=== PATIENT | female | born 1975 | race Caucasian/White ===

== ENCOUNTER 2019-06-20 01:13 | Emergency (ER) | payer OTHER, SELFPAY ==
--- NOTE | ~2019-06-20 | XR_ITS ---
EXAMINATION: XR chest 2V DATE: 06/20/2019 04:11 INDICATION: Cough TECHNIQUE: PA and lateral views of the chest are obtained. COMPARISON: None available FINDINGS: The lungs are free of acute opacities. There is no pleural effusion or pneumothorax. The ca rdiomediastinal silhouette is normal. There is mild thoracic spondylosis. IMPRESSION: 1. No acute cardiopulmonary abnormality. Reviewed, dictated and finalized at location A. Y OPERATOR
--- NOTE | ~2019-06-20 | CT_ITS ---
EXAMINATION: CT brain wo con INDICATION: Altered mental status and generalized weakness COMPARISON: None TECHNIQUE: Standard unenhanced head CT. The dose-length product (DLP) was 605.33 mGy-cm. The mA was a djusted according to patient size. Iterative reconstruction technique was employed. FINDINGS: There is no intracranial hemorrhage, acute infarction, or abnormal mass lesion. The ventric les are normal. There is no abnormal mass effect or midline shift. The anders-white matter differentiat ion is normal. The basal cisterns are patent. The orbits are normal. There is mild mucosal thickening of the paranasal sinuses. IMPRESSION: 1. No acute intracranial abnormality. Reviewed, dictated and finalized at location A. ACTION MACHINE OPERATOR
[2019-06-20 01:16] VITALS: BP 128/62; PULSE 93; RESP 22; TEMP 37.8; O2SAT 100
--- NOTE | 2019-06-20 03:11 | ECG_ITS ---
Measurements Intervals [place] Rate: 96 P: 15 MT: 169 QRS: 1 QRSD: 83 T: 24 QT: 330 QTc: 419 Interpretive Statements SINUS RHYTHM LOW QRS VOLTAGE IN PRECORDIAL LEADS CANNOT RULE OUT SEPTAL INFARCT, AGE INDETERMINATE ABNORMAL ECG Electronically Signed On 06-20-2019 15:50:11 BANQUET MANAGER by Jorgito Damian D.O.
[2019-06-20 03:30] VITALS: PULSE 98; RESP 18
[2019-06-20] MEDS: IPRATROPIUM BR 0.02% INH SOLN 0.5 MG/2.5 ML VIAL INHALATION (03:30)
[2019-06-20] MEDS: ALBUTEROL SULFATE NEB 2.5 MG/0.5 ML INH 5 MG INHALATION (03:30)
[2019-06-20 03:39] VITALS: PULSE 94; RESP 18
[2019-06-20 04:01] LABS: Basophils Absolute Auto 0.1 K/mm3 (0.0-0.1); Basophils Percent Auto 0.5 % (0.2-1.2); Eosinophils Percent Auto 0.1 % (0-4.4); Hematocrit 38.8 % (37.0-47.0); Hemoglobin 12.5 g/dL (12.0-15.0); Immature Granulocyte Absolute 0.05 K/mm3 (0.00-0.031); Immature Granulocyte Percent A 0.5 % (0-0.5); Lymphocytes Absolute Auto 0.77 K/mm3 (0.9-3.2); Lymphocytes Percent Auto 7.2 % (18.3-44.2); Mean Corpuscular HGB Conc 32.2 g/dl (32-36); Mean Corpuscular Hemoglobin 30.4 pg (26-34); Mean Corpuscular Volume 94.4 fl (80-100); Mean Platelet Volume 9.3 fl (7.4-10.4); Monocytes Percent Auto 9.6 % (2.6-8.5); Neutrophils Absolute Auto 8.8 K/mm3 (1.3-6.7); Neutrophils Percent Auto 82.1 % (45.5-73.1); Platelet Count Result 225 k/mm3 (150-375); Red Blood Count 4.11 M/mm3 (4.2-5.4); Red Cell Distribution Width 12.4 % (11.5-14.5); White Blood Count 10.7 K/mm3 (4.5-10.0)
[2019-06-20 04:23] LABS: Alanine Aminotransferase 62 U/L (4-35); Albumin Level 3.6 g/dL (3.5-5.1); Alkaline Phosphatase 63 U/L (38-126); Aspartate Amino Transferase 57 U/L (14-36); Bilirubin,Total 0.1 mg/dL (0.2-1.3); Blood Urea Nitrogen 6 mg/dL (7-17); Calcium 8.3 mg/dL (8.4-10.2); Carbon Dioxide 19 mmol/L (22-30); Chloride 104 mmol/L (98-107); Estimated CRCL calculation 99 ml/min; Estimated Glomerular Filt Rate > 60; Glucose 112 mg/dL (65-105); Potassium 4.1 mmol/L (3.4-5.0); Sodium 132 mmol/L (137-145)
[2019-06-20 04:24] LABS: Lactic Acid Reflex 0.8 mmol/L (0.7-2.1)
[2019-06-20 05:19] LABS: Add Urine Microscopic? YES; Appearance Urine Clear (Clear); Bilirubin Urine Negative (Negative); Blood Urine 2+ (Negative); Color Urine Straw (Yellow); Glucose Urine UA Negative (Negative); Ketones Urine Negative (Negative); Leukocyte Esterase Ur Negative LEU/UL (Negative); Mucus Urine Few /lpf; Nitrate Urine Negative (Negative); Protein Urine Negative (Negative); RBC Urine 0-2 /hpf (0-2); Specific Grav Ur 1.011 (1.001-1.035); Squamous Epithelial Cell Urine Rare /hpf (Few); Urobilinogen Urine Negative mg/dL (<2.0); WBC Urine 0-3 /hpf
--- NOTE | 2019-06-20 05:21 | ED.URI ---
HPI - URI/Sore Throat General Chief Complaint: Upper Respiratory Infection Stated Complaint: INFLUENZA A Time Seen by Provider: 06/20/19 03:10 Source: RN notes reviewed History of Present Illness HPI Narrative: Patient presents to emergency department from home for flulike symptoms. Patient states that yesterday she was diagnosed with influenza A at the the urgent care. She states that for the past 3 days she has been having body aches fevers and a cough is been nonproductive. Patient states that she has not been feeling better and per patient and family this evening she was having hallucinations. 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 This time the patient is awake and alert x3 she denies any current hallucinations. Patient states that she has had few episodes of posttussive emesis but denies any other nausea vomiting Related Data Allergies Allergy/AdvReac Type Severity Reaction Status Date / Time Penicillins Allergy Intermediate Swelling Verified 06/20/19 05:52 Review of Systems Review of Systems: Narrative: Gen.: See HPI Eyes: Denies eye pain or visual change ENT: Reports congestion Respiratory: Reports shortness of breath CV: Denies chest pain or palpitations GI: Denies abdominal pain nausea, emesis or diarrhea denies burning, urgency, frequency or hematuria Musculoskeletal: Denies back pain or muscle pain Neuro: Denies numbness, tingling, weakness or focal weakness Skin: Denies rash Except as documented, all other systems reviewed and negative [facility] Past Medical History Medical History Bipolar 1 disorder Surgical History Surgical History (Updated 06/20/19 @ 05:53 by Dave Theodore DO) History of cholecystectomy Social History Social History (Updated 06/20/19 @ 05:53 by Dave Theodore DO) Smoking status: Current every day smoker Gender identity (if verbalized by the patient): Female Exam Narrative: Exam Narrative: APPEARANCE: No acute distress, nontoxic, resting in bed EYES: EOMI HEENT: Normocephalic, atraumatic, TMs clear bilaterally, bilateral turbinates boggy, mild erythema no exudate posterior pharynx RESPIRATORY: No respiratory distress Clear to auscultation bilaterally with no rhonchi wheezing or rales. CARDIOVASCULAR: Regular rate and rhythm without murmurs rubs or gallops. ABDOMINAL: Soft, nontender, nondistended, no rebound or guarding MUSCULOSKELETAl: Moves all extremities. No clubbing, cyanosis or edema. NEURO: Awake and alert x 3Following commands, speech normal, no focal deficits SKIN:: Warm, dry. No rashes lesions or abrasions PSYCHIATRIC: Normal affect/mood, Course Vital Signs Vital signs: Vital Signs Temperature 100.0 F H 06/20/19 01:16 Pulse Rate 93 06/20/19 01:16 Respiratory Rate 22 H 06/20/19 01:16 Blood Pressure 128/62 06/20/19 01:16 Pulse Oximetry 100 06/20/19 01:16 Temperature 100.0 F H 06/20/19 01:16 Pulse Rate 94 06/20/19 03:39 Respiratory Rate 18 06/20/19 03:39 Blood Pressure 128/62 06/20/19 01:16 Pulse Oximetry 100 06/20/19 01:16 MDM - URI/Sore Throat Lab Data Result diagrams: 06/20/19 03:54 06/20/19 03:54 Labs: Lab Results 06/20/19 06/20/19 06/20/19 Range/Units 03:54 03:54 03:54 WBC 10.7 H (4.5-10.0) K/mm3 RBC 4.11 L (4.2-5.4) M/mm3 Hgb 12.5 (12.0-15.0) g/dL Hct 38.8 (37.0-47.0) % MCV 94.4 (80-100) fl MCH 30.4 (26-34) pg MCHC 32.2 (32-36) g/dl RDW 12.4 (11.5-14.5) % Plt Count 225 (150-375) k/mm3 MPV 9.3 (7.4-10.4) fl Immature Gran % (Auto) 0.5 (0-0.5) % Neut % (Auto) 82.1 H (45.5-73.1) % Lymph % (Auto) 7.2 L (18.3-44.2) % [place] % (Auto) 9.6 H (2.6-8.5) % Eos % (Auto) 0.1 (0-4.4) % Baso % (Auto) 0.5 (0.2-1.2) % Lymph # (Auto) 0.77 L (0.9-3.2) K/mm3 [place] # (Auto) 1.0 H (0.1-0.6) K/mm3 Eos #
[2019-06-20 05:46] VITALS: BP 112/73; PULSE 94; RESP 20; TEMP 37.3; O2SAT 96; O2SAT 97
[2019-06-20] MEDS: SODIUM CHLORIDE 0.9% IV 1,000 ML 999 ML IV CONT (05:53)
[2019-06-20] MEDS: KETOROLAC 30 MG/ML VIAL (*BKC) IV PUSH (05:53)
[2019-06-20 06:06] VITALS: BP 120/75; PULSE 92; RESP 20; TEMP 37.3; O2SAT 98
[2019-06-20 07:27] VITALS: BP 105/67; PULSE 95; RESP 20; TEMP 37.3; O2SAT 95
== END 2019-06-20 07:42 | disposition home or self-care (01) ==
PROVIDERS: Emergency Provider Emergency Medicine; PCP Internal Medicine Infectious Disease
DX: J10.1 Influenza due to other identified influenza virus with other respiratory manifestations (principal); F17.200 Nicotine dependence, unspecified, uncomplicated
CPT/HCPCS: 36415; 70450; 71046; 80053; 81001; 83605; 85025; 87040; 93005; 94640; 96361; 96374; 99284; A9270; J1885; J7030

== ENCOUNTER 2021-09-21 01:52 | Emergency (ER) | payer OTHER, SELFPAY ==
--- NOTE | 2021-09-21 01:56 | ED.DENTAL ---
HPI - Dental/Oral General Chief complaint: Dental/Oral Stated complaint: dental pain Time Seen by Provider: 09/21/21 01:56 Source: patient Mode of arrival: ambulatory Limitations: no limitations History of Present Illness HPI Narrative: The patient is a 46-year-old female presenting to the emergency department for evaluation of right upper molar dental pain. Patient reports severe right upper molar pain, patient states that she recently had tooth pulled on September 12. Patient states that she felt blood coming from the right upper molar, and then severe pain. She denies any purulent discharge. She denies any facial swelling, redness, fever, chills. Denies any difficulty breathing, shortness of breath. Patient denies neck swelling. Patient reports pain is aching in nature, denies any difficulty opening her mouth. Patient states that she has been on antibiotics, currently is taking Medrol Dosepak as prescribed by her dentist. Patient has dental follow-up this morning but came to the ER due to the pain. Per pt has been on two rounds of azithromycin, she is penicillin allergic. MD Complaint: tooth pain Location: Tooth # (2) Related Data Allergies Allergy/AdvReac Type Severity Reaction Status Date / Time Penicillins Allergy Intermediate Swelling Verified 09/21/21 02:00 Review of Systems Review of Systems: CONSTITUTIONAL: Denies fever CARDIOVASCULAR: Denies chest pain HEENT: Right upper molar pain RESPIRATORY: Denies cough or dyspnea. GASTROINTESTINAL: Denies abdominal pain SKIN: Denies rash MUSCULOSKELETAL: Denies back pain NEUROLOGIC: Denies headache PMFSH Past Medical History Medical History Bipolar 1 disorder Vaginal tumor Surgical History Surgical History H/O: hysterectomy (~10/20/19) History of biopsy vulvar History of cholecystectomy History of colonoscopy IBS History of endometrial ablation (~06/11/18) History of hysteroscopy Hysteroscopy, surgical, with biopsy of endometrium and/or polypectomy History of tubal ligation (~12/01/14) TL and resection of peritoneal mass (adhesions/calcification) Social History Social History Smoking status: Current every day smoker Gender identity (if verbalized by the patient): Female Exam Narrative: GENERAL: Awake, alert, conversant HEAD: Normocephalic, atraumatic. EYES: PERRLA and EOMI. ENT: Nares clear, no rhinorrhea or epistaxis. Mucous membranes moist. Uvula is midline. No trismus. Pt without significant facial edema, erythema. Pt with tooth extracted at molar 2 with large exposed tooth cavity, roots exposed. No purulent discharge. No gingival edema. Numerous crowns present on other teeth. NECK: Supple. No cervical lymphadenopathy. CHEST: No respiratory distress, breathing even and non labored HEART: Regular rate, sinus rhythm ABDOMEN:Non distended, non tender EXTREMITIES: Normal range of motion. No edema. SKIN: Warm, dry, no rash. NEURO:No focal deficits. Alert and oriented x3 Course Vital Signs Vital signs: Vital Signs Temperature 35.5 C L 09/21/21 01:57 Pulse Rate 88 09/21/21 01:57 Respiratory Rate 16 09/21/21 01:57 Blood Pressure 153/97 H 09/21/21 01:57 Pulse Oximetry 97 09/21/21 01:57 Temperature 36.7 C 09/21/21 02:00 Pulse Rate 97 09/21/21 02:00 Respiratory Rate 20 09/21/21 02:00 Blood Pressure 146/94 H 09/21/21 02:00 Pulse Oximetry 98 09/21/21 02:00 MDM - Dental/Oral MDM Narrative Medical decision making narrative: Patient's pain is consistent with dry socket from tooth extraction. Pt without signs of infection at this point. At the time of assessment there are no signs of systemic illness, no focal signs of space-occupying abscess or lesions, no signs of Dilshad angina or other concerning retropharyngeal infection. The patient is controll
[2021-09-21 01:57] VITALS: BP 153/97; PULSE 88; RESP 16; TEMP 35.5; O2SAT 97
[2021-09-21 02:00] VITALS: BP 146/94; PULSE 97; RESP 20; TEMP 36.7; O2SAT 98
[2021-09-21] MEDS: oxyCODONE/ACETAMINOPHEN (*CRX) 5-325 MG TABLET 2 TABLET PO (02:35)
[2021-09-21] MEDS: KETOROLAC (*BKC) 60 MG/2 ML VIAL 30 MG IM (02:37)
== END 2021-09-21 02:40 | disposition home or self-care (01) ==
PROVIDERS: Emergency Provider Emergency Medicine; PCP Internal Medicine Infectious Disease
DX: M27.3 Alveolitis of jaws (principal); F17.200 Nicotine dependence, unspecified, uncomplicated
CPT/HCPCS: 96372; 99283; A9270; J1885

== ENCOUNTER 2021-10-06 22:14 | Emergency (ER) | payer OTHER, SELFPAY ==
--- NOTE | ~2021-10-06 | CT_ITS ---
EXAMINATION: CT facial bones w con DATE: 10/06/2021 23:45 INDICATION: Right-sided facial pain TECHNIQUE: Computed tomography (CT) of the facial bones and maxillofacial region was performed with 7 5 cc of Omnipaque 300 intravenous contrast. The dose-length product (DLP) was 1285.49 mGy-cm. Automat ed exposure control and iterative reconstruction technique were employed. COMPARISON: None. FINDINGS: There is mild mucosal thickening of the maxillary sinuses, right sphenoid sinus, and ethmoi yun air cells. No facial fracture is identified. There are multiple tooth extractions of the maxilla. There is a penetration through the maxilla into the inferior maxillary sinus on the right, likely re lated to dental extraction. There appears to be a tiny defect of the inferior wall of the left maxill jay sinus. The site of prior dental extraction (image 109). No abnormal enhancement is present. There is no facial abscess. There is mild cervical spondylosis. IMPRESSION: 1. Small defects in the maxilla penetrating into the maxillary sinuses, likely related to dental extr actions. No abscess identified. Reviewed, dictated and finalized at location A. IMPRESSION: 1. Small defects in the maxilla penetrating into the maxillary sinuses, likely related to dental extractions. No abscess identified.
[2021-10-06 22:19] VITALS: BP 142/92; PULSE 90; RESP 18; TEMP 36.6; O2SAT 99
[2021-10-06 22:31] VITALS: BP 156/96; O2SAT 98
[2021-10-06] MEDS: HYDROcodone/acetaminophen (*CRX) 5-325 MG TABLET 1 TAB PO (22:45)
[2021-10-06 22:57] LABS: Basophils Absolute Auto 0.1 K/mm3 (0.0-0.1); Basophils Percent Auto 0.6 % (0.2-1.2); Eosinophils Absolute Auto 0.4 K/mm3 (0-0.3); Eosinophils Percent Auto 4.3 % (0-4.4); Hematocrit 38.9 % (37.0-47.0); Hemoglobin 12.8 g/dL (12.0-15.0); Immature Granulocyte Absolute 0.03 K/mm3 (0.00-0.031); Immature Granulocyte Percent A 0.3 % (0-0.5); Lymphocytes Absolute Auto 3.85 K/mm3 (0.9-3.2); Lymphocytes Percent Auto 38.9 % (18.3-44.2); Mean Corpuscular HGB Conc 32.9 g/dl (32-36); Mean Corpuscular Hemoglobin 30.5 pg (26-34); Mean Corpuscular Volume 92.8 fl (80-100); Mean Platelet Volume 8.4 fl (7.4-10.4); Monocytes Absolute Auto 0.7 K/mm3 (0.1-0.6); Monocytes Percent Auto 7.1 % (2.6-8.5); Neutrophils Absolute Auto 4.8 K/mm3 (1.3-6.7); Neutrophils Percent Auto 48.8 % (45.5-73.1); Platelet Count Result 376 k/mm3 (150-375); Red Blood Count 4.19 M/mm3 (4.2-5.4); Red Cell Distribution Width 12.5 % (11.5-14.5); White Blood Count 9.9 K/mm3 (4.5-10.0)
--- NOTE | 2021-10-06 22:57 | ED.DENTAL ---
HPI - Dental/Oral General Chief complaint: Dental/Oral Stated complaint: dental pain/swelling Time Seen by Provider: 10/06/21 22:30 Source: RN notes reviewed History of Present Illness HPI Narrative: Patient presents emergency room from home for facial pain. Patient states that on September 12, 2021 she had several teeth pulled in the bilateral molar region she states that since that time she has had increased pain going up into her sinuses she has been following with Dr. Gramajo and it was felt that her sinus of been ruptured she states she has been scheduled for an outpatient CT but has not been preauthorized by insurance yet. She states she is currently on clindamycin and states the pain became more severe this evening patient that she not taking thing for the pain at home. The pain is located bilateral frontal sinuses she also states that she notices drainage out of the previous location of her teeth she denies any fevers or chills sore throat or any other symptoms Related Data Home Medications Medication Instructions Recorded Confirmed clonazepam 1 mg tablet 1 mg PO DAILY 09/29/21 10/06/21 lisdexamfetamine 10 mg capsule 10 mg PO DAILY 09/29/21 10/06/21 lisdexamfetamine 20 mg capsule 20 mg PO QAM 09/29/21 10/06/21 lithium aspartate 5 mg capsule 5 mg PO DAILY 09/29/21 10/06/21 losartan 25 mg tablet 25 mg PO DAILY 09/29/21 10/06/21 pilocarpine HCl 5 mg tablet 5 mg PO QID 09/29/21 10/06/21 venlafaxine 37.5 mg 37.5 mg PO DAILY 09/29/21 10/06/21 capsule,extended release 24 hr Allergies Allergy/AdvReac Type Severity Reaction Status Date / Time Penicillins Allergy Intermediate Swelling Verified 10/06/21 22:24 Review of Systems Review of Systems: Gen.: Denies fevers or chills Eyes: Denies eye pain or visual change ENT: See HPI Respiratory: Denies shortness of breath or cough CV: Denies chest pain or palpitations GI: Denies abdominal pain nausea, emesis Musculoskeletal: Denies back pain or muscle pain Neuro: Denies numbness, tingling, weakness or focal weakness Skin: Denies rash Except as documented, all other systems reviewed and negative PMFSH Past Medical History Medical History Bipolar 1 disorder Vaginal tumor Surgical History Surgical History H/O: hysterectomy (~10/20/19) History of biopsy vulvar History of cholecystectomy History of colonoscopy IBS History of endometrial ablation (~06/11/18) History of hysteroscopy Hysteroscopy, surgical, with biopsy of endometrium and/or polypectomy History of tubal ligation (~12/01/14) TL and resection of peritoneal mass (adhesions/calcification) Family History Family History Mother Hypertension Depression Thyroid disorder Other Depression Thyroid disorder Father Heart disease Social History Social History Smoking status: Current every day smoker Gender identity (if verbalized by the patient): Female Exam Narrative: APPEARANCE: No acute distress, nontoxic, resting in bed EYES: EOMI HEENT: Normocephalic, atraumatic, TMs clear bilaterally nares patent tender palpation of bilateral maxillary sinuses, or mucosa moist erythema exudate posterior pharynx healing region of the bilateral upper gums in the region of the molar from previous tooth extraction no active drainage no surrounding erythema no swelling of the face RESPIRATORY: No respiratory distress Clear to auscultation bilaterally with no rhonchi wheezing or rales. CARDIOVASCULAR: Regular rate and rhythm without murmurs rubs or gallops. MUSCULOSKELETAl: Moves all extremities. NEURO: Awake and alert. Following commands, speech normal, no focal deficits SKIN:: Warm, dry. No rashes lesions or abrasions PSYCHIATRIC: Normal affect/mood, Course Course Emergency Course: : Discuss
[2021-10-06 23:11] LABS: Alanine Aminotransferase 72 U/L (6-35); Albumin Level 3.4 g/dL (3.5-5.1); Alkaline Phosphatase 85 U/L (38-126); Anion Gap 7 mmol/L (8-16); Aspartate Amino Transferase 47 U/L (14-36); Bilirubin,Total 0.2 mg/dL (0.2-1.3); Blood Urea Nitrogen 9 mg/dL (7-17); Calcium 8.4 mg/dL (8.4-10.2); Carbon Dioxide 23 mmol/L (22-30); Chloride 111 mmol/L (98-107); Estimated CRCL calculation 95 ml/min; Estimated Glomerular Filt Rate > 60; Glucose 124 mg/dL (65-110); Potassium 3.9 mmol/L (3.4-5.0); Sodium 141 mmol/L (137-145)
[2021-10-07] MEDS: KETOROLAC 30 MG/ML VIAL (*BKC) IV PUSH (00:27)
[2021-10-07 01:00] VITALS: BP 128/92; PULSE 69; RESP 16; O2SAT 98
== END 2021-10-07 01:00 | disposition home or self-care (01) ==
PROVIDERS: Emergency Provider Emergency Medicine; PCP Nurse Practitioner
DX: G89.18 Other acute postprocedural pain (principal); K08.89 Other specified disorders of teeth and supporting structures; F31.9 Bipolar disorder, unspecified; F17.200 Nicotine dependence, unspecified, uncomplicated
CPT/HCPCS: 36415; 70487; 80053; 85025; 96374; 99284; A9270; J1885; Q9967

== ENCOUNTER 2021-10-10 23:06 | Emergency (ER) | payer OTHER, SELFPAY ==
[2021-10-10 23:09] VITALS: BP 155/90; PULSE 105; RESP 18; TEMP 36.7; O2SAT 100
--- NOTE | 2021-10-11 00:20 | ED.DENTAL ---
HPI - Dental/Oral General Chief complaint: Dental/Oral Stated complaint: tooth pain Time Seen by Provider: 10/10/21 23:30 History of Present Illness HPI Narrative: Patient is a 46-year-old female with a history of recurrent sinusitis, recent dental extraction, who presents for evaluation of right-sided facial pain for the past month. Patient states her pain began after a dental extraction of a right upper molar. She is experienced intermittent pain, swelling, and also a sensation that she describes like a loose upper jaw. Patient has been evaluated in the ED twice for this issue. CT of the facial bones revealed no traumatic malalignment but did show likely post-surgical changes to her maxilla/dentition. Her pain has been better after [place]. She has also been evaluated by Dr. Gramajo, ENT, who is reportedly aware of the CT and is planning for surgery on her sinuses in the future. Denies trismus, drooling, sore throat, difficulty breathing. Related Data Home Medications Medication Instructions Recorded Confirmed clonazepam 1 mg tablet 1 mg PO DAILY 09/29/21 10/06/21 lisdexamfetamine 10 mg capsule 10 mg PO DAILY 09/29/21 10/06/21 lisdexamfetamine 20 mg capsule 20 mg PO QAM 09/29/21 10/06/21 lithium aspartate 5 mg capsule 5 mg PO DAILY 09/29/21 10/06/21 losartan 25 mg tablet 25 mg PO DAILY 09/29/21 10/06/21 pilocarpine HCl 5 mg tablet 5 mg PO QID 09/29/21 10/06/21 venlafaxine 37.5 mg 37.5 mg PO DAILY 09/29/21 10/06/21 capsule,extended release 24 hr Allergies Allergy/AdvReac Type Severity Reaction Status Date / Time Penicillins Allergy Intermediate Swelling Verified 10/11/21 00:00 Review of Systems Review of Systems: Gen: Denies fevers or chills Eyes: Denies eye pain or visual change ENT: Reports right-sided dental pain. Respiratory: Denies shortness of breath or cough CV: Denies chest pain or palpitations GI: Denies abdominal pain nausea, emesis or diarrhea denies burning, urgency, frequency or hematuria Musculoskeletal: Denies back pain or muscle pain Neuro: Denies numbness, tingling, weakness or focal weakness Skin: Denies rash Except as documented, all other systems reviewed and negative All systems reviewed & are unremarkable except as noted in HPI and below PMFSH Past Medical History Medical History Bipolar 1 disorder Vaginal tumor Surgical History Surgical History H/O: hysterectomy (~10/20/19) History of biopsy vulvar History of cholecystectomy History of colonoscopy IBS History of endometrial ablation (~06/11/18) History of hysteroscopy Hysteroscopy, surgical, with biopsy of endometrium and/or polypectomy History of tubal ligation (~12/01/14) TL and resection of peritoneal mass (adhesions/calcification) Family History Family History (Reviewed 09/29/21 @ 11:15 by Snehal Cali [facility]) Mother Hypertension Depression Thyroid disorder Other Depression Thyroid disorder Father Heart disease Social History Social History Smoking status: Current every day smoker Gender identity (if verbalized by the patient): Female Exam Narrative: APPEARANCE: Well appearing, no pain in distress, well-nourished. Head: normocephalic and atraumatic. EYES: PERRLA/EOMI, conjunctivae clear NOSE: No nasal drainage EARS: External ear normal in appearance THROAT: Right upper tooth is surgically extracted. Poor dentition throughout. No significant swelling noted on exam. No trismus, no drooling. NECK: Supple. No adenopathy, no masses. RESPIRATORY: Airway patent, respirations nonlabored. Clear to auscultation bilaterally, no rales, rhonchi, wheezing. CARDIOVASCULAR: Regular rate and rhythm without murmurs, rubs, or gallops. ABDOMINAL: Normoactive bowel sounds. Soft, nontender, nondistended. No rebound tenderness or guard
[2021-10-11] MEDS: HYDROcodone/acetaminophen (*CRX) 5-325 MG TABLET 1 TAB PO (00:47)
[2021-10-11 01:50] VITALS: BP 141/97; PULSE 75; RESP 16; O2SAT 99
== END 2021-10-11 01:51 | disposition home or self-care (01) ==
PROVIDERS: Emergency Provider Emergency Medicine; PCP Nurse Practitioner
DX: K08.89 Other specified disorders of teeth and supporting structures (principal); F31.9 Bipolar disorder, unspecified; F17.200 Nicotine dependence, unspecified, uncomplicated
CPT/HCPCS: 99283; A9270

== ENCOUNTER 2021-10-20 13:04 | Outpatient (CLI) | payer OTHER, SELFPAY ==
[2021-10-20 14:02] LABS: Lithium 0.9 mmol/L (0.6-1.2)
== END 2021-10-20 13:05 | disposition home or self-care (01) ==
PROVIDERS: Anesthesiology; PCP Nurse Practitioner; Visit Provider Otolaryngology
DX: Z01.812 Encounter for preprocedural laboratory examination (principal); F31.9 Bipolar disorder, unspecified
CPT/HCPCS: 36415; 80178

== ENCOUNTER 2021-10-21 01:49 | Day surgery (SDC) | payer OTHER, SELFPAY ==
[2021-10-13 15:40] VITALS: BMI 32.3
--- NOTE | 2021-10-13 15:41 | SUR.PREOP ---
Addendum entered by Kecia Krause RN 10/20/21 09:45: PLEASE NOTE, NEW ARRIVAL TIME OF 0730 AM FOR 0930 SURGERY. MAY HAVE UP TO 20 OZ OF CLEAR LIQUIDS UNTIL 0630 AM, NOTHING BY MOUTH AFTER 0630 AM. Original Note: Report to the Outpatient Waiting Room, entrance under the green pavilion located off [facility], at time _1100 on date 10/21/21 . OR Time: _1300 . - You and your visitor will be asked a series of questions to screen for COVID 19 for your protection. - Only one visitor is allowed at this time. - The patient visitor is requested to leave or wait in car when not with patient. - A mask is required within the hospital. Patients may have clear liquids (water, carbonated beverages, clear teas, apple juice) until 3 hours prior to surgery with a maximum of 20 ounces. - No food from midnight until time of surgery - Infants may have breast milk until 4 hours before surgery, infant formula 6 hours prior to surgery. - Children will be allowed to drink immediately following surgery. If applicable, please bring a bottle or sippy cup to assist with drinking. Juice, water, soda, and popsicles are readily available. For infants on formula, please bring formula the day of surgery. Pacifiers are allowed. Take the following medications with a SIP of water the morning of surgery: _clonidine,clonezapam,lithium,venlafexine Medications to discontinue per physician ____n/a Date to take last dose___n/a Please no make-up, nail solomon islander, hairspray, perfume, deodorant, or body powder the day of surgery. No jewelry (including any body piercings) or valuables the day of surgery, leave them at home. Please take a shower or bath the night before, or the morning of, surgery with an antibacterial soap. Wear comfortable, loose fitting clothing. Children are encouraged to wear pajamas. - Jewelry must be removed prior to entering the operating room. Rings and piercings that are not removed may be cut off. - The hospital will not accept responsibility for valuables. - Please leave all valuables, including medications, at home the day of surgery. If you are going home after surgery, a licensed charter and tour bus driver must drive you home. - NO public transportation without another adult. - We recommend that an adult stay with you for 24 hours following discharge. - We also recommend that you do not drive, make important decision, drink alcoholic beverages, or take any drugs that were not prescribed by your health care provider for at least 24 hours after your discharge time. For Pediatric surgeries, we recommend two adults accompany the child home (only one inside the building at this time). Follow any additional instructions given to you from your surgeon. If you or anyone in your household have experienced Covid symptoms in the past week, please notify your surgeon or the nurse liaison at the phone number below for possible testing. Telephone instructions given to román maxwell and asked if any additional questions and then verbalized understanding. Patient advised to call surgeon office or pre surgery nurse liaison [phone] if any additional questions.
--- NOTE | 2021-10-20 09:23 | PM.IMHP ---
H&P: HPI History of Present Illness Date/Time: 10/20/21 09:23 Chief Complaint: Nasal obstruction nasal congestion septal deviation turbinate hypertrophy chronic sinusitis odontogenic sinusitis Narrative: patient presents for planned surgical procedures no change in symptoms no change in history. FOR[facility]LY [facility] Past Medical History Medical History Bipolar 1 disorder Vaginal tumor Surgical History Surgical History H/O: hysterectomy (~10/20/19) History of biopsy vulvar History of cholecystectomy History of colonoscopy IBS History of endometrial ablation (~06/11/18) History of hysteroscopy Hysteroscopy, surgical, with biopsy of endometrium and/or polypectomy History of tubal ligation (~12/01/14) TL and resection of peritoneal mass (adhesions/calcification) Family History Family History Mother Hypertension Depression Thyroid disorder Other Depression Thyroid disorder Father Heart disease Social History Social History Smoking status: Current every day smoker Tobacco type: cigarettes Additional smoking assessment comments: 1 ppd cigarettes x 20 years Gender identity (if verbalized by the patient): Female Spiritual care concerns: No Meds Home Medications and Allergies Home Medications Medication Instructions Recorded Confirmed Type clonazepam 1 mg tablet 2 mg PO BID 09/29/21 10/13/21 History fluticasone propionate 50 2 spray intranasal BID #16 mL 09/29/21 10/13/21 Rx mcg/actuation nasal spray,suspension (Flonase Allergy Relief) lisdexamfetamine 10 mg capsule 10 mg PO HS 09/29/21 10/13/21 History (Vyvanse) lisdexamfetamine 20 mg capsule 20 mg PO QAM 09/29/21 10/13/21 History (Vyvanse) pilocarpine HCl 5 mg tablet 5 mg PO QID 09/29/21 10/13/21 History venlafaxine 37.5 mg 37.5 mg PO BID 09/29/21 10/13/21 History capsule,extended release 24 hr (Effexor XR) clonidine HCl 0.1 mg tablet 1 tablet PO DAILY 10/13/21 10/13/21 History lithium carbonate 450 mg 1 tablet PO BID 10/13/21 10/13/21 History tablet,extended release losartan 50 mg tablet 1 tablet PO DAILY 10/13/21 10/13/21 History Allergies Allergy/AdvReac Type Severity Reaction Status Date / Time Penicillins Allergy Intermediate Swelling Verified 10/13/21 15:03 Exam Eyes: Other: Oral exam significant for infected appearing sockets. Septal deviation on nasal exam turbinate hypertrophy remainder of examination is normal Assessment and Plan Assessment and plan (1) Nasal congestion: Code(s): R09.81 - Nasal congestion Status: Acute Assessment and Plan: ?Plan is for the OR for image guided bilateral maxillary antrostomy anterior ethmoidectomy right sphenoidotomy as well as endoscopic assisted septoplasty and turbinate reduction. risks discussed including bleeding infection CSF leak brain damage blindness change in vision need for further procedures septal perforation damage in pain to any structure above the clavicles by myself damage to any structure during the maintenance and/or induction of anesthesia. Failure to resolve the symptoms as this is largely a dental issue, opening the sinuses will offer another avenue for disease E [place] and treatment. Patient voiced understanding of this as well. (2) Nasal obstruction: Code(s): J34.89 - Other specified disorders of nose and nasal sinuses Status: Acute (3) Facial pain: Code(s): R51.9 - Headache, unspecified Status: Acute (4) Facial pressure: Code(s): R44.8 - Other symptoms and signs involving general sensations and perceptions Status: Acute (5) Hypertrophy of both inferior nasal turbinates: Code(s): J34.3 - Hypertrophy of nasal turbinates Stat
[2021-10-21] VITALS (10 sets, daily range): BP systolic 122–152; BP diastolic 69–92; PULSE 82–109; RESP 10–20; TEMP 36.3–36.6; O2SAT 94–100
--- NOTE | 2021-10-21 07:18 | WPDHPUPDATE1 ---
History and Physical Update Update Date/Time: 10/21/21 07:18 History and Physical has been reviewed, including an updated exam of the patient. There are NO changes in the patient's condition. Risks, benefits, and alternatives have been discussed and questions answered. Patient agrees to proceed with procedure.
[2021-10-21] MEDS: ACETAMINOPHEN 500 MG TABLET 1000 MG PO (08:03)
--- NOTE | 2021-10-21 08:17 | WPDANESEPPF ---
Anes - Initial Pre Proc Eval Procedure: Operation Date: 10/21/21 09:30 Proposed Procedures p Image Guided Bilateral Inferior Turbinectomy, Right Sphenoidotomy, Bilateral Anterior Ethmoidectomy, Bilateral Maxillary Antrostomy, - Joaquin Gramajo MD s Endoscopic Septoplasty - Joaquin Gramajo MD Date/Time: 10/21/21 08:17 Surgeon: Joaquin Gramajo MD Pre Op Diagnosis: chronic sinusitis Patient Data Age: 46 Gender: F Height: 1.68 m Weight: 90.35 kg Last Vital Signs Temp 36.6 C 10/21/21 07:43 Pulse 89 10/21/21 07:43 Resp 16 10/21/21 07:43 BP 139/90 10/21/21 07:43 Pulse Ox 97 10/21/21 07:43 O2 Del Method Room Air 10/21/21 07:43 Allergies Allergy/AdvReac Type Severity Reaction Status Date / Time Penicillins Allergy Intermediate Swelling Verified 10/21/21 08:03 Home Medications Medication Instructions Recorded Confirmed Type clonazepam 1 mg tablet 2 mg PO BID 09/29/21 10/21/21 History fluticasone propionate 50 2 spray intranasal BID #16 mL 09/29/21 10/21/21 Rx mcg/actuation nasal spray,suspension (Flonase Allergy Relief) lisdexamfetamine 10 mg capsule 10 mg PO HS 09/29/21 10/21/21 History (Vyvanse) lisdexamfetamine 20 mg capsule 20 mg PO QAM 09/29/21 10/21/21 History (Vyvanse) pilocarpine HCl 5 mg tablet 5 mg PO QID 09/29/21 10/21/21 History venlafaxine 37.5 mg 37.5 mg PO BID 09/29/21 10/21/21 History capsule,extended release 24 hr (Effexor XR) clonidine HCl 0.1 mg tablet 1 tablet PO DAILY 10/13/21 10/21/21 History lithium carbonate 450 mg 1 tablet PO BID 10/13/21 10/21/21 History tablet,extended release losartan 50 mg tablet 1 tablet PO DAILY 10/13/21 10/21/21 History Patient hx anesthesia problems: other (2 months of hoarsness following hysterectomy required speech path) Family hx anesthesia problems: none Results Review: All pre-operative results and documents have been reviewed as part of the pre-operative evaluation. [facility] Past Medical History Medical History Bipolar 1 disorder Vaginal tumor Surgical History Surgical History H/O: hysterectomy (~10/20/19) History of biopsy vulvar History of cholecystectomy History of colonoscopy IBS History of endometrial ablation (~06/11/18) History of hysteroscopy Hysteroscopy, surgical, with biopsy of endometrium and/or polypectomy History of tubal ligation (~12/01/14) TL and resection of peritoneal mass (adhesions/calcification) Family History Family History Mother Hypertension Depression Thyroid disorder Other Depression Thyroid disorder Father Heart disease Social History Social History Smoking status: Current every day smoker Tobacco type: cigarettes Additional smoking assessment comments: 1 ppd cigarettes x 20 years Living arrangements: with family Gender identity (if verbalized by the patient): Female Spiritual care concerns: No Anes - Eval Final PreProcedure Day of Procedure 10/21/21 08:17 Patient weight: obese Heart: regular rate and rhythm Lungs: clear to auscultation Airway: Mallampati scale class II Neurological: alert and oriented Last oral intake: >/= 8 hours ASA classification: III Emergent: no Anesthetic plan: proceed Results Review: All pre-operative results and documents have been reviewed as part of the pre-operative evaluation. Informed Consent: The patient's anesthetic plan and its attendant risks and benefits were discussed with the patient/family/POA. Questions were solicited and answers provided to the satisfaction of the patient/family/POA.
[2021-10-21] MEDS: LACTATED RINGERS 1,000 ML 30 ML IV CONT ×2 (08:18→11:38)
[2021-10-21] MEDS: ceFAZolin 2 GM/D5W 50 ML 2 GM/50 ML BAG IVPB (09:52)
[2021-10-21] MEDS: OXYMETAZOLINE HCL 0.05% NAS 15 ML BTL (*BKC) 1 SPRAY NASAL (09:59)
--- NOTE | 2021-10-21 11:51 | W.PM.PROC2 ---
Procedure Note - Detailed Date of Procedure 10/21/21 Pre-op Diagnosis chronic sinusitis, odontogenic sinusitis, right sphenoid sinusitis, septal deviation, turbinate hypertrophy, nasal obstruction, nasal congestion Post-op Diagnosis Same Procedure Performed Endoscopic assisted septoplasty bilateral inferior turbinate submucosal resection with outfracture image guided endoscopic bilateral maxillary antrostomies anterior ethmoidectomies and a right-sided image guided endoscopic sphenoidotomy trans ethmoid Surgeon Joaquin Gramajo MD Anesthesia General Indications See above Findings Disease mucosa on the floor the maxillary sinuses disease right sphenoid mucosa leftward septal deviation corrected, no perforations turbinate hypertrophy well reduced following procedure Description of Procedure Patient identified consent verified. Patient brought operating room. Time-out performed. General anesthesia induced. Image guidance endotracheal tube secured taped left lower lip. Image guidance initiated and confirmed. Patient prepped and draped for procedure 2nd time-out performed. Afrin-soaked pledgets placed in bilateral nasal passages allowed to sit for 5 minutes then removed. 10 cc 1% local with 1 100,000 parts epinephrine injected in the bilateral nasal septum and inferior turbinates. 2 mm microdebrider blade utilized to debride the bilateral inferior turbinates in the submucosal plane they were then outfractured bilaterally with a [place] elevator. [place] incision made left-sided septum left nasal septal flap elevated with 7 [place] suction osteotome utilized to cross over septum right nasal septal flap then elevated. Deviated septum removed with [place] excuse me Boogie Chaudhary forceps Gladys and osteotome. No perforations. [place] incision closed with 3 interrupted 5 0 fast gut sutures. Bilateral maxillary antrostomies performed with image guidance double ball tip probe backbiter straight through cut micro debrider anterior ethmoidectomies performed micro debrider and [place]. Skull base orbit were not violated. Trans ethmoid right-sided sphenoidotomy then performed with image guidance [place] 1 [place] to 3 [place] and sphenoid punch thick mucosa in the sinus. Removed with micro debrider. No complications. Total blood loss about 35 cc. Bilateral nasal passages suctioned the choana. Nova pack placed in the bilateral middle meati I stenting the turbinates medially. [place] splints trimmed placed bilaterally sutured anteriorly using a 3-0 mattressed nylon suture. I performed all dictated portions of the procedure. Care the patient given Anesthesiology. No complications. Again blood loss, 35 cc. Estimated Blood Loss -35.0 Drains No Packing Yes Pathology None sent Complications No immediate complications Condition Stable Disposition PACU
[2021-10-21] MEDS: fentaNYL CITRATE INJ (*CRX) 100 MCG/2 ML VIAL 25 MCG IV PUSH ×2 (12:01→12:12)
--- NOTE | 2021-10-21 12:11 | SUR.PHASEI ---
1210: Simple mask removed.
== END 2021-10-21 13:49 | disposition home or self-care (01) ==
PROVIDERS: PCP Nurse Practitioner; Visit Provider Otolaryngology
PROC: (CPT 30520; principal; 2021-10-21 09:30)
PROC: (CPT 30520; 2021-10-21 09:30)
DX: J32.9 Chronic sinusitis, unspecified (principal); J34.2 Deviated nasal septum; J34.3 Hypertrophy of nasal turbinates; R44.8 Other symptoms and signs involving general sensations and perceptions; R51.9 Headache, unspecified; J34.89 Other specified disorders of nose and nasal sinuses; R09.81 Nasal congestion; F17.210 Nicotine dependence, cigarettes, uncomplicated; J32.8 Other chronic sinusitis; F31.9 Bipolar disorder, unspecified; E66.9 Obesity, unspecified; Z68.32 Body mass index [BMI] 32.0-32.9, adult
CPT/HCPCS: 30520; 30140; 31256; 31257; 61782; A9270; J0330; J0690; J1100; J2250; J2405; J2704; J3010; J7120